=== PATIENT | female | born 1960 | race Caucasian/White ===

== ENCOUNTER 2017-09-11 13:37 | Emergency (ER) | payer SELFPAY ==
[2017-09-11] MEDS ORDERED: ONDANSETRON 4 MG/2 ML VIAL IVP ONE (14:48)
[2017-09-11] MEDS ORDERED: NS 500 ML IV ONE (14:48)
[2017-09-11] MEDS ORDERED: fentaNYL 100 MCG/2 ML INJ IVP ONE (14:48)
--- NOTE | 2017-09-11 15:06 | EDPHY ---
H & P Time Seen by Provider: 09/11/17 14:20 HPI/ROS: HPI Fall while hiking. Right hand injury. 56-year-old female by private vehicle with family. She was hiking with her . She tripped and fell on an outstretched right hand. She complains of pain and deformity to the right 5th digit. She is right-hand dominant. She was seen in an Urgent Care. X-rays were performed there. She was then sent to our emergency department for further evaluation. She denies loss of consciousness. She hit the right side of her head. She denies headache. No neck pain. Denies other extremity pain. No other complaints. ROS: Constitutional: No fever, no chills. No weakness. Eyes: No discharge. No changes in vision. Respiratory: No cough. No shortness of breath. Cardiac: No chest pain, no palpitations. Gastrointestinal: No abdominal pain, no vomiting, no diarrhea. Genitourinary: No hematuria. Musculoskeletal: No back pain. No neck pain. As above. Denies other extremity pain. Skin: No rashes. Superficial abrasion right forehead. Neurological: No headache. No focal weakness or altered sensation. Past medical history: She denies any significant past medical history. Social history: Here with family. Does not smoke. No alcohol. Physical Exam: General Appearance: Alert, no distress. This patient is responding to questions appropriately and in full sentences. This patient appears well- hydrated and well-nourished. Head: Normocephalic atraumatic except for a superficial abrasion right lateral brow ridge. No bony deformity or step-off noted on palpation of this area.. Face: Facial bones are stable on palpation. Eyes: Pupils equal and round and reactive to light, no pallor or injection. No lid erythema or edema. ENT, Mouth: Mucous membranes moist. Dentition is intact. No malocclusion of the jaw. No tongue lacerations or abrasions. Pharynx is clear. The bilateral nasal canals are clear. No septal hematoma. Respiratory: There are no retractions, lungs are clear to auscultation with good air movement bilaterally. Chest wall is stable to AP and lateral palpation. Cardiovascular: Regular rate and rhythm. No murmur. Gastrointestinal: Abdomen is soft and nontender, no masses, bowel sounds normal. Neurological: Motor sensory function is intact. Cranial nerves are normal. Cerebellar function intact. Skin: Warm and dry, no rashes. No lacerations, abrasions or contusions. Musculoskeletal: Neck is supple and nontender. The trachea is midline. No midline cervical, thoracic, lumbar or sacral tenderness on palpation. No flank tenderness on palpation. Right upper extremity exam: Significant for deformity at the metacarpal phalangeal joint 5th digit. This is a hyper extension with medial deviation deformity. The right 5th digit is neurovascularly intact otherwise. No pain on axial compression of digits 1 through 4. No tenderness on palpation of the bony aspects of the hand. No snuffbox tenderness. The wrist ranges without any significant pain or impingement as does the elbow and right shoulder. Extremities are symmetrical, full range of motion other than noted. All joints in the bilateral upper and bilateral lower extremities range without pain or impingement other than noted. No tenderness on palpation of the long bones in the bilateral upper and bilateral lower extremities other than noted. Psychiatric: No agitation. No depression. Database: EKG: Imaging: Right hand x-ray series obtained at [facility]: Significant for transverse fracture of the base of the 1st phalanx 5th finger with medial and dorsal displacement. Interpreted by me. Post reduction right hand x-ray/5th digit x-ray series: Shows markedly improved bony alignment at the fracture site. There still is some medial subluxation. Interpreted by me. Procedures: Procedure: Splint placement. A ortho glass ulnar gutter splint was applied. After application of the splint I returned and re-examined the patient. The splint was adequately immobilizing the joint and distal to the splint the patient's circulation and sensation was intact. Procedure: Dislocation reduction. The right 5th finger fracture was reduced in the usual fashion without complications. Post reduction the patient's neurovascular exam is normal. Post reduction x-ray demonstrates reduction of the bone and fracture site to the anatomic position. The procedure was performed by myself. Emergency department course: Triage vital signs reviewed. From triage IV was placed. The patient was administered 50 mcg of IV fentanyl for pain and 4 mg of IV Zofran for nausea. After my evaluation I performed a digital block using 0.5% bupivacaine without epinephrine. Excellent local anesthesia was obtained. 4:10 p.m., spoke with on-call orthopedic hand specialist Dr. Rigoberto Martinez. Case discussed in detail with him. He agrees with above management. He will see this patient in his office on close follow-up either tomorrow or Friday. 4:25 p.m., patient re-evaluated. Resting comfortably at this time. Pain well controlled. I discussed follow-up with Dr. Martinez. Management plan thoroughly reviewed with the patient and her family. All of their questions were answered. Return to emergency department precautions discussed. Patient was discharged home in good condition with family. Note this patient received a prescription for Percocet only. Differential Diagnosis: The differential diagnosis on this patient includes but is not limited to proximal phalanx fracture of 5th finger. Traumatic brain injury, cervical spine injury, other significant traumatic injury the noted unlikely. This represents a partial list of diagnoses considered. These considerations are based on history, physical exam, past history, reassessment and diagnostic testing. Smoking Status: Never smoked Constitutional: Initial Vital Signs Temperature (C) 36.7 C 09/11/17 13:39 Heart Rate 105 H 09/11/17 13:39 Respiratory Rate 18 09/11/17 13:39 Blood Pressure 134/89 H 09/11/17 13:39 O2 Sat (%) 96 09/11/17 13:39 O2 Delivery Mode Room Air Allergies/Adverse Reactions: No Known Allergies Allergy (Unverified 09/11/17 13:39) Home Medications: Medication Instructions Recorded Aspirin 81mg (*) 09/11/17 Hydrocodone/APAP 5/325 [[place] 1 - 2 tab PO Q4-6PRN PRN #20 tab 09/11/17 5/325 (*)] oxyCODONE/APAP 5/325 [Percocet 1 - 2 tab PO Q4-6PRN PRN #14 tab 09/11/17 5/325 (*)] Medical Decision Making - Diagnostics Imaging Results: Imaging Impressions Finger X-Ray 09/11/17 15:17 Impression: 1. Comminuted mildly displaced fracture involving the metadiaphyseal base of the fifth digit proximal phalanx. 2. Avulsion fracture at the proximal aspect of the fourth finger middle phalanx , and a nondisplaced intra-articular fracture involving the metaphyseal portion of the ring finger proximal phalanx. Right Fifth Finger, 2 Views, at 3:30 PM: Again noted is the comminuted fracture involving the metaphyseal base of the fifth digit proximal phalanx, relatively unchanged. The avulsion fracture at the volar base of the fourth finger middle phalanx is also again noted. Impression: Fractures involving the fourth and fifth fingers, as-detailed. Hand X-Ray 09/11/17 15:17 Impression: 1. Comminuted mildly displaced fracture involving the metadiaphyseal base of the fifth digit proximal phalanx. 2. Avulsion fracture at the proximal aspect of the fourth finger middle phalanx , and a nondisplaced intra-articular fracture involving the metaphyseal portion of the ring finger proximal phalanx. Right Fifth Finger, 2 Views, at 3:30 PM: Again noted is the comminuted fracture involving the metaphyseal base of the fifth digit proximal phalanx, relatively unchanged. The avulsion fracture at the volar base of the fourth finger middle phalanx is also again noted. Impression: Fractures involving the fourth and fifth fingers, as-detailed. - Data Points Medications Given: Discontinued Medications Fentanyl (Sublimaze) 50 mcg IVP EDNOW ONE Stop: 09/11/17 14:49 Last Admin: 09/11/17 14:53 Dose: 50 mcg Sodium Chloride (Ns) 500 mls @ 1,000 mls/hr IV EDNOW ONE PRN Reason: Protocol Stop: 09/11/17 15:17 Last Admin: 09/11/17 14:56 Dose: 500 mls Ondansetron HCl (Zofran) 4 mg IVP EDNOW ONE Stop: 09/11/17 14:49 Last Admin: 09/11/17 14:54 Dose: 4 mg Departure - Departure Disposition: Home, Routine, Self-Care Clinical Impression: Finger fracture, right Condition: Good Instructions: Finger Fracture (ED) Additional Instructions: Read and follow provided instructions. Follow-up with Dr. Rigoberto Martinez, orthopedic hand specialist, as discussed for re-evaluation and further management of your finger fracture. He can call his office this afternoon for appointment time. Ibuprofen dosin mg every 6 hours with meals for the next 3 days only. Take only as needed for pain. Narcotic pain medication dosin-2 every 4-6 hours as needed for pain. Do not take additional Tylenol with this medication. Do not drive while on this medication. Return to the emergency department for worsening pain, discoloration, loss of sensation or other serious concerns. Referrals: Rigoberto Martinez MD [Medical Doctor] - As per Instructions Prescriptions: Hydrocodone/APAP 5/325 [[place] 5/325 (*)] 1 - 2 tab PO Q4-6PRN PRN #20 tab PRN Reason: Pain, Moderate oxyCODONE/APAP 5/325 [Percocet 5/325 (*)] 1 - 2 tab PO Q4-6PRN PRN #14 tab PRN Reason: For Moderate To Severe Pain
[2017-09-11 16:42] VITALS: BP 124/76
== END 2017-09-11 16:51 | disposition home or self-care (01) ==
PROC: 0PSTXZZ Reposition Right Finger Phalanx, External Approach (ICD-10-PCS; principal; 2017-09-11)
DX: S62.616A Displaced fracture of proximal phalanx of right little finger, initial encounter for closed fracture (principal); E86.9 Volume depletion, unspecified; Z79.82 Long term (current) use of aspirin; W01.0XXA Fall on same level from slipping, tripping and stumbling without subsequent striking against object, initial encounter; Y99.8 Other external cause status; Y93.01 Activity, walking, marching and hiking
CPT/HCPCS: 96374; J2405; J3010